=== PATIENT | male | born 1940 | race Caucasian/White ===

== ENCOUNTER 2016-12-03 10:53 | Day surgery (SDC) | payer OTHER ==
[2016-11-24 08:50] VITALS: BMI 32.0
--- NOTE | 2016-11-24 09:36 | PAT Medication Instructions ---
Service Date Nov 24, 2016. Current Home Medication List Fish Oil ([place]-3), 1 CAP PO QPM Ibuprofen (Motrin), 600 MG PO QID PRN for RN Lisinopril (Prinivil), 20 MG PO QAM Mometasone Furoate (Elocon), 1 APPLN TOP BID PRN for PRN Terazosin (Hytrin), 5 MG PO QAM [Otc For Muscles], 1 TAB PO QPM [Vitamin C], 1 TAB PO QPM [Vitamin D], 1 TAB PO QPM [Vitamin E], 1 TAB PO QPM Medication Instructions For Your Scheduled Surgery - Hold the following medications starting today 11/24/16: Vitamin E 1 TAB PO QPM Fish Oil ([place]-3), 1 CAP PO QPM OTC For Muscles 1 TAB PO QPM - Hold the following medications 24 hours prior to surgery: Mometasone Furoate (Elocon), 1 APPLN TOP BID PRN for PRN - Hold the following medications the morning of surgery: Lisinopril (Prinivil), 20 MG PO QAM Ibuprofen (Motrin), 600 MG PO QID PRN for RN (can continue per surgeon) - Take the following medications the morning of surgery with a sip of water: Terazosin (Hytrin), 5 MG PO QAM - Take the following medications as scheduled the night before surgery: Vitamin C 1 TAB PO QPM Vitamin D 1 TAB PO QPM If you have any questions please call us at [phone] or [phone] ( [place]) or [phone]
--- NOTE | 2016-11-24 10:00 | DIAGNOSTIC IMAGING REPORT ---
CHEST 2 VIEWS ROUTINE CLINICAL HISTORY: Preoperative evaluation. COMPARISON STUDY: No previous studies for comparison. FINDINGS: Lung volumes are normal. There is no pneumothorax or pleural effusion. Mild opacity within the left lower lung likely reflects atelectasis or epicardial fat pad. There is no evidence of pulmonary edema. There is borderline cardiomegaly. Mediastinal contours are unremarkable. IMPRESSION: 1. No acute cardiopulmonary findings. 2. Borderline cardiomegaly. 3. Mild left basilar opacity which favors atelectasis or prominent epicardial fat pad. Electronically signed by: Cristofer Adame M.D. 11/24/2016 9:59 AM
[2016-11-24 10:07] LABS: BASO ABS # 0.08 K/uL (0-0.2); COMPLETE YES; EOS % 3.7 %; HEMATOCRIT 34.1 % (42-52); IG% 0.2 %; LYMPH ABS # 0.77 K/uL (1.2-3.4); MEAN CORPUSCULAR HEMOGLOBIN 31.7 pg (25-34); MEAN CORPUSCULAR HGB CONC 35.2 g/dl (32-36); MEAN PLATELET VOLUME 9.3 fL (7.4-10.4); MONO % 5.9 %; NEUT % 69.2 %; PLATELET COUNT 219 K/uL (130-400); RED BLOOD COUNT 3.79 M/uL (4.7-6.1); WHITE BLOOD COUNT 4.06 K/uL (4.8-10.8)
[2016-11-24 10:25] LABS: BUN/CREATININE RATIO 14.1 (10-20); CALCIUM 9.4 mg/dl (8.5-10.1); CREATININE 1.1 mg/dl (0.60-1.40); POTASSIUM 4.6 mmol/L (3.5-5.1)
[~2016-12-03] VITALS: Ht 180.3 cm; Wt 106.8 kg
[~2016-12-03 10:53] MED LIST: IBUP-1450 PO; LACTATED RINGER'S 1000ML 1,000 ML IV SCH; LISI20TA3 PO; MOME0.1O TOP; OMEG10007 PO; TERA5CAP PO; VITAMIN C PO; VITAMIN D PO; VITAMIN E PO; [UNRECOGNIZED DRUG - REMARK] PO
[2016-12-03 11:08] VITALS: BP 159/102; PULSE 69; TEMP 36.6; O2SAT 98; Ht 180.3 cm; Wt 106.8 kg
[2016-12-03] MEDS ORDERED: ONDANSETRON INJ 2 MG/ML 2 ML VIAL ONE (12:28)
[2016-12-03] MEDS ORDERED: PROPOFOL IV EMULSION 10 MG/ML 20 ML VIAL IV ONE (12:28)
[2016-12-03] MEDS ORDERED: DEXAMETHASONE SOD INJ 4 MG/ML VIAL ONE (12:28)
[2016-12-03] MEDS ORDERED: LIDOCAINE HCL 2% 2 ML VIAL (20MG/ML) ONE (12:28)
[2016-12-03] MEDS ORDERED: FENTANYL CITRATE INJ 50 MCG/1 ML 2 ML VIAL ONE ×2 (12:29→13:36)
[2016-12-03] MEDS ORDERED: MIDAZOLAM HCL 1 MG/ML 2ML VIAL ONE (12:29)
--- NOTE | 2016-12-03 13:00 | History & Physical Bridge Note ---
H&P Re-Evaluation Bridge Note: I have examined the patient, reviewed the History & Physical and in the interval since the performance of the History & Physical I have noted the following changes of clinical significance: No changes noted pt marked, no one at bedside
[2016-12-03] MEDS ORDERED: OXYC-57 PO (13:05)
--- NOTE | 2016-12-03 13:05 | Discharge Instructions ---
Discharge Instructions Visit Reason for Visit: Left Scrotal Hernia Discharge Discharge Diagnosis / Problem: Repair of hernia Discharge Goals Goal(s): Decrease discomfort Activity Recommendations Activity Limitations: per Instructions/Follow-up section Lifting Limitations: no more than 10 pounds Shower/Bathe: tomorrow Driving or Machine Use: resume 3 days after discharge Anesthesia . Post Anesthesia Instructions: If you have had General Anesthesia or IV Sedation: * Do not drive today. * Resume driving when surgeon permits. * Do not make important decisions or sign legal documents today. * Call surgeon for: 1. Temperature elevations greater than 101 degrees F. 2. Uncontrollable pain. 3. Excessive bleeding. 4. Persistent nausea and vomiting. 5. Medication intolerance (nausea, vomiting or rash). * For nausea and vomiting use only clear liquids such as: tea, soda, bouillon until nausea subsides, then gradually increase diet as tolerated. * If you have any concerns or questions, call your surgeon's office. If physician is unavailable and it is an emergency, call 911 or go to the nearest emergency room. . Instructions / Follow-Up Instructions / Follow-Up Dr. Washington in 1 week, call [phone] if you do not already have an appt Ice incision off and on 20 minutes each until bedtime Diet Recommendations Recommended Home Diet: no limitations Pending Studies Studies pending at discharge: no Medical Emergencies . Who to Call and When: Medical Emergencies: If at any time you feel your situation is an emergency, please call 911 immediately. . Non-Emergent Contact Non-Emergency issues call your: Surgeon Call Non-Emergent contact if: you have a fever, temperature is above 101.5, your pain is not controlled, wound has increased redness, wound has increased pain . . "Provider Documentation" section prepared by Angelo Frazier.
[2016-12-03] MEDS ORDERED: CEFAZOLIN SOD 1 GM VIAL ONE (13:27)
[2016-12-03] MEDS ORDERED: BACITRACIN 50000 UNIT VIAL IR ONE (14:03)
[2016-12-03] MEDS ORDERED: BUPIVACAINE 0.5 % 5 MG/1 ML MPF 30ML VIAL INJ ONE (14:22)
--- NOTE | 2016-12-03 14:25 | [facility] Post Operative Brief Note ---
Immediate Operative Summary Operative Date Dec 03, 2016. Pre-Operative Diagnosis Left Scrotal Hernia Post-Operative Diagnosis Left Scrotal Hernia Procedure(s) Performed Open Left Indirect Sliding Inguinal Scrotal Hernia Repair with Mesh Surgeon Dr. Washington Lime Spreader Surgeon(s) BRIANA Villarreal Estimated Blood Loss 5 ml Findings sigmoid in hernia sac sliding Specimens none per surgeon
[2016-12-03] MEDS ORDERED: LACTATED RINGER'S 1000ML 1,000 ML IV SCH (14:35)
[2016-12-03] MEDS ORDERED: NALOXONE HCL 0.4 MG/1 ML VIAL/CARP IV PRN (14:45)
[2016-12-03] MEDS ORDERED: LABETALOL HCL IV 5 MG/ML 20ML IV PRN (14:45)
[2016-12-03] MEDS ORDERED: MoRPHine SULFATE 2 MG/ML CARP IV PRN (14:45)
[2016-12-03] MEDS ORDERED: ATROPINE SULFATE 0.1 MG/ML 5ML SYR IV PRN (14:45)
[2016-12-03] MEDS ORDERED: EpHEDrine SULFATE INJ 50 MG/ML AMP IV PRN (14:45)
[2016-12-03] MEDS ORDERED: OXYCODONE/ACETAMINOPHEN 5-325 TAB PO PRN (14:45)
[2016-12-03] MEDS ORDERED: ONDANSETRON INJ 2 MG/ML 2 ML VIAL IV PRN ×2 (14:45)
[2016-12-03] MEDS ORDERED: FLUMAZENIL 0.1 MG/1 ML 10 ML VIAL IV PRN (14:45)
[2016-12-03] MEDS ORDERED: PROMETHAZINE HCL INJ 12.5 MG in SODIUM CHLORIDE 0.9% 50ML 50 ML IV PRN (14:45)
[2016-12-03] MEDS: HYDROmorphone INJ 1 MG/ML SYR IV PRN ×2 (15:03→15:08)
--- NOTE | 2016-12-03 15:22 | Anesthesiology Progress Note ---
Anesthesia Post Op Note Date & Time Dec 03, 2016 at 15:21 Vital Signs Pain Intensity: 1 Vital Signs Past 12 Hours Date Time Temp Pulse Resp B/P Pulse Ox O2 Delivery O2 Flow Rate FiO2 12/03/16 15:18 36.5 12/03/16 15:15 67 17 100 12/03/16 15:15 64 17 12/03/16 15:13 161/99 12/03/16 15:10 71 12 100 12/03/16 15:10 64 12 12/03/16 15:09 144/92 12/03/16 15:05 66 12 100 12/03/16 15:05 60 12 12/03/16 15:04 166/98 12/03/16 15:00 63 11 100 12/03/16 15:00 62 11 12/03/16 14:59 159/95 12/03/16 14:55 66 10 12/03/16 14:55 68 10 100 12/03/16 14:53 157/103 12/03/16 14:50 78 12 12/03/16 14:50 80 12 100 12/03/16 14:49 159/99 12/03/16 14:45 80 12 12/03/16 14:45 77 12 100 12/03/16 14:43 154/97 12/03/16 14:41 143/103 12/03/16 14:35 36.3 73 16 162/81 100 Nasal Cannula 3 12/03/16 11:08 36.6 69 18 159/102 98 Room Air Notes Mental Status: alert / awake / arousable, participated in evaluation Pt Amnestic to Procedure: Yes Nausea / Vomiting: adequately controlled Pain: adequately controlled Airway Patency, RR, SpO2: stable & adequate BP & HR: stable & adequate Hydration State: stable & adequate Anesthetic Complications: no major complications apparent
--- NOTE | 2016-12-03 15:25 | OPERATIVE REPORT ---
DATE OF OPERATION: 12/03/2016 SURGEON: Dr. Washington. CAN TENDER: BRIANA Pendleton. PREOPERATIVE DIAGNOSIS: Large left scrotal hernia. POSTOPERATIVE DIAGNOSIS: Left indirect sliding hernia. PROCEDURE: Open repair of left indirect sliding hernia. DESCRIPTION OF PROCEDURE: The patient was brought into the operating room theater. The left lower quadrant was prepped with Betadine scrubbing solution and properly draped. We made a transverse anesthesia after preemptive local analgesia 1% Xylocaine with epinephrine was used to infiltrate 2 fingerbreadths medial, anterior, and superior iliac crest. An external oblique incision was made to the external ring and deepened through subcutaneous tissues. Some vessels were ligated with 2-0 silk. The patient had about an inch and a half of subcutaneous fatty tissue until we got to the abdominal wall. Identifying the external oblique along the course of its fibers, we used more local anesthetic, incised and elevated with hemostats. We were able then to go to the external ring. Once we were about the external ring, we could see that the patient had a significant amount of fatty tissue down towards the scrotum. We were able to elevate that with a Shahid drain and then we maneuvered that and then freed it up from the cord structure that was strictly adherent and we identified that the patient had a significant amount of sigmoid down into the hernial sac going down to the scrotum. We basically returned everything without opening the sac into the indirect area using a sponge forceps. Once we had returned everything in the abdomen, we then closed the internal ring loosely with interrupted 3-0 silk sutures just to approximate the tissue as was indirect defect. Then I used a piece of Marlex mesh and brought up onto the field. We took a segment of it and made a linear cutter until a piece of it to place as a plug into the indirect area using a silk suture as a central portion and as a stay suture. At this point, the Marlex mesh was brought onto the field and sutured onto the symphysis pubis and conjoined tendon down to the shelving portion and reconstructed the internal ring. Prior to completely reconstructing the internal ring, we used a silk suture to take bites of the patch onto the plug and tying it together. The internal ring was enough to accommodate the tip of a hemostat. We made sure that the Marlex mesh was approximately 3-4 cm beyond the internal inguinal laterally. This was all placed underneath the external oblique. The external oblique was then closed along the cord ____ with 3-0 silk interrupted suture, reconstructing the external ring. The patient had a little excess tissue along the cord structures of fatty lipomatous tissue which we did not remove. The subcutaneous tissue with 2-0 Dexon and latoya for skin edges. Dressing was applied. The procedure was tolerated well by the patient. Estimated blood loss approximately 5 mL. The patient was taken to recovery room in good condition. I attest to the content of the Intraoperative Record and any orders documented therein. Any exceptio ns are noted below.
[2016-12-03 15:35] VITALS: BP 167/91; PULSE 72; TEMP 36.9; O2SAT 96
[2016-12-03 16:05] VITALS: BP 170/94; PULSE 73; O2SAT 96
[2016-12-03 16:35] VITALS: BP 170/94; PULSE 73; O2SAT 96
[2017-07-29] MEDS ORDERED: VITAMIN B12 PO (07:35)
[2017-07-29] MEDS ORDERED: VITAMIN E PO (07:35)
[2017-07-29] MEDS ORDERED: VITAMIN C PO (07:35)
[2017-07-29] MEDS ORDERED: VITAMIN B6 PO (07:35)
[2017-07-29] MEDS ORDERED: VITAMIN D PO (07:35)
== END 2016-12-03 16:45 | disposition home or self-care (01) ==
LOC: C.ACU 10:53
PROVIDERS: ATTEND Surgery
DX: K40.90 Unilateral inguinal hernia, without obstruction or gangrene, not specified as recurrent (principal); L30.9 Dermatitis, unspecified; D48.5 Neoplasm of uncertain behavior of skin; Z86.008 Personal history of in-situ neoplasm of other site

== ENCOUNTER → 2017-03-16 | Outpatient (CLI) | payer OTHER ==
[~2017-03-16] MED LIST changes: -LACTATED RINGER'S 1000ML 1,000 ML IV SCH; +OXYC-57 PO; +VITAMIN B12 PO; +VITAMIN B6 PO
--- NOTE | 2017-03-16 14:41 | DIAGNOSTIC IMAGING REPORT ---
LUMBAR SPINE 5 VIEWS HISTORY: Pain RADICULOPATHY, LUMBOSACRAL REGION COMPARISON: None. FINDINGS: There is no fracture. There is slight scoliosis. Moderate degenerative disc changes throughout. Moderate reactive osteophytic changes throughout. IMPRESSION: Moderate degenerative change. Mild scoliosis. No acute process. Electronically signed by: Karthik Tran M.D. 03/16/2017 2:39 PM Dictated Date/Time: 03/16/2017 2:38 PM
--- NOTE | 2017-03-16 14:42 | DIAGNOSTIC IMAGING REPORT ---
PELVIS/UNILATERAL HIP 2-3VIEWS CLINICAL HISTORY: RADICULOPATHY pain. Neuropathy. COMPARISON: None. DISCUSSION: The bones and joint spaces appear intact. There is no evidence of fracture, dislocation or bony disease. There is no evidence for soft tissue swelling. IMPRESSION: Negative study. Electronically signed by: Karthik Tran M.D. 03/16/2017 2:40 PM Dictated Date/Time: 03/16/2017 2:39 PM
== END | disposition home or self-care (01) ==
LOC: C.RAD 13:59
PROVIDERS: ATTEND Family Medicine
DX: M54.17 Radiculopathy, lumbosacral region (principal)

== ENCOUNTER → 2017-08-11 | Day surgery (SDC) | payer MEDICARE, OTHER ==
[2017-07-29 07:35] VITALS: Ht 180.3 cm; Wt 109.1 kg
[~2017-08-11] VITALS: Ht 180.3 cm; Wt 109.1 kg
[~2017-08-11] MED LIST changes: +500ML BSS 0.3ML EPI 1:1000PF IRRIG ONE; +ACETAMINOPHEN 325 MG TAB PO PRN; +AMVISC PLUS 0.8ML SYRINGE INT OCU ONE; +ATROPINE SULFATE 0.1 MG/ML 5ML SYR IV PRN; +BSS FLUSH ONE; +ENDOCOAT 0.85ML SYRINGE INT OCU ONE; +EpHEDrine SULFATE INJ 50 MG/ML AMP IV PRN; +EpINEphrine INJ 1MG/ML AMP 1 MG/ML AMP ONE; +FENTANYL CITRATE INJ 50 MCG/1 ML 2 ML VIAL IV PRN; +LACTATED RINGER'S 1000ML 500 ML IV SCH; +LIDOCAINE 4% OP SOLN DROP CHARGE ONE; +LIDOCAINE 4% OP SOLN DROP CHARGE OPL SCH; +LIDOCAINE HCL 1% MPF 2 ML VIAL ONE; +MIDAZOLAM HCL 1 MG/ML 2ML VIAL ONE; +MIX: 4ML BSS 1ML EPI 1:1000 PF TOP ONE; -MOME0.1O TOP; +MOXIFLOXACIN OPH SOLN PER DROP CHARGE ONE; +ONDANSETRON INJ 2 MG/ML 2 ML VIAL IV PRN; -OXYC-57 PO; +POVIDONE-IODINE OP SOLN 30 ML BTL ONE; +PROPARACAINE 0.5% OP SOLN PER DROP CHARGE OPL SCH; +TOBRAMYCIN/DEXAMETHASONE OPH OINT PER APPLN CHARGE ONE; -[UNRECOGNIZED DRUG - REMARK] PO
--- NOTE | 2017-08-11 09:47 | History & Physical Bridge - [place] ---
H&P Re-Evaluation Bridge Note: I have examined the patient, reviewed the History & Physical and in the interval since the performance of the History & Physical I have noted the following changes of clinical significance: No changes noted
[2017-08-11] MEDS: PHENYLEPHRINE HCL 2.5% OP SOLN PER DROP CHARGE OPL SCH ×3 (09:53→10:06)
[2017-08-11] MEDS: TROPICAMIDE 1% OP SOLN PER DROP CHARGE OPL SCH ×3 (09:54→10:07)
[2017-08-11] MEDS: CYCLOPENTOLATE HCL 1% OP SOLN PER DROP CHARGE OPL SCH ×3 (10:00→10:07)
[2017-08-11] MEDS: MOXIFLOXACIN OPH SOLN PER DROP CHARGE OPL SCH ×3 (10:01→10:08)
--- NOTE | 2017-08-11 10:57 | [facility] Post Operative Brief Note ---
Immediate Operative Summary Operative Date Aug 11, 2017. Pre-Operative Diagnosis Left eye cataract Post-Operative Diagnosis Same as preop Procedure(s) Performed Left Cataract Phacoemulsification With Intraocular Lens Implant Surgeon Dr. Chung [employer] Assistant Surgeon(s) None Estimated Blood Loss 0 mL Findings left cataract Specimens None Complication(s) None Disposition
[2017-08-11 10:58] VITALS: TEMP 36.6
--- NOTE | 2017-08-11 10:58 | [facility] Operative Report ---
Operative Report Date of Service Aug 11, 2017. Operative Report Phaco with monofocal IOL DATE OF OPERATION: 08/11/17 PREOPERATIVE DIAGNOSIS: Senile nuclear cataract, left eye POSTOPERATIVE DIAGNOSIS: Senile nuclear cataract, left eye PROCEDURE PERFORMED: Phacoemulsification with intraocular lens implantation, left eye SURGEON: Dr. Morgan Chung ANESTHESIA: Topical with 1% intracameral lidocaine and monitored anesthesia care COMPLICATIONS: None DESCRIPTION OF PROCEDURE: After positively identifying the patient both verbally and by wristband in the preoperative area, the left eye was marked as the operative eye. The patient was then brought back to the operating room by the anesthesia and nursing staff where they were given a drop of Lidocaine and betadine into the operative eye. They were then sterilely prepped and draped in the standard fashion typical for ophthalmic surgery. Steri-strips were placed along the upper eyelids to keep the lashes back, and a lid speculum was placed into the operative eye. At this point, a documented time out was performed with members of the ophthalmology, nursing, and anesthesia staffs all agreeing upon the correct patient, correct location for surgery, correct procedure, and correct type and power of intraocular lens to be implanted. The microscope was then swung into position. First, a paracentesis wound was made using a sideport blade. Then, in sequence, 1% preservative-free lidocaine followed by Endocoat viscoelastic was injected into the anterior chamber. Next , the main incision was made with a keratome blade in triplanar fashion. A sharp cystotome was introduced into the eye and used to create a tear in the anterior capsule, which was directed into a continuous curvilinear capsulorrhexis using Utrata forceps. Hydrodissection was then performed with BSS on a flat-tip cannula. Next, the phacoemulsification handpiece was introduced into the eye and used to remove the nucleus in a [id number] fashion. This was done without complication and then the irrigation-aspiration handpiece was introduced into the eye and used to remove all remaining cortical and epinuclear material. Amvisc was then injected into the anterior chamber as well as into the capsular bag and using the lens injector system, an MX60 19.5 D lens, serial number [id number], and expiration date 01/2020 was injected into the capsular bag and rotated into the correct position. Next, the irrigation- aspiration handpiece was used to remove all remaining Amvisc. BSS was used to hydrate the main wound, and then BSS was injected into the paracentesis site to reach physiologic pressure and then the main wound was checked and found to be watertight. The patient was given drops of Vigamox and Tobradex ointment into the operative eye, and then the surrounding area was cleaned and dried. A clear plastic shield was placed over the eye and the patient was then sat up and taken from the operating room by the anesthesia staff having tolerated the procedure well and suffering no complications. DISPOSITION: The patient was returned to the recovery room in stable condition. I attest to the content of the Intraoperative Record and any orders documented therein. Any exceptions are noted below.
--- NOTE | 2017-08-11 10:59 | Discharge Instructions-SurgCtr ---
Discharge Instructions Date of Service Aug 11, 2017. Visit Reason for Visit: Cataract Left Eye Discharge Discharge Diagnosis / Problem: left cataract Discharge Goals Goal(s): Decrease discomfort, Improve function Activity Recommendations Activity Limitations: as noted below Anesthesia . Post Anesthesia Instructions: If you have had General Anesthesia or IV Sedation: * Do not drive today. * Resume driving when surgeon permits. * Do not make important decisions or sign legal documents today. * Call surgeon for: 1. Temperature elevations greater than 101 degrees F. 2. Uncontrollable pain. 3. Excessive bleeding. 4. Persistent nausea and vomiting. 5. Medication intolerance (nausea, vomiting or rash). * For nausea and vomiting use only clear liquids such as: tea, soda, bouillon until nausea subsides, then gradually increase diet as tolerated. * If you have any concerns or questions, call your surgeon's office. If physician is unavailable and it is an emergency, call 911 or go to the nearest emergency room. . Instructions / Follow-Up Instructions / Follow-Up ACTIVITY RECOMMENDATIONS: * Light activities. * You may walk outside, read, watch television. * You may notice redness on the white part of the eye and some blurry vision - this is normal. MEDICATIONS: Resume previous medications unless instructed otherwise by your surgeon. Start all eye drops at 1 pm today: * Eye drops (today): Prednisone - one drop in operative eye every 2 hours while awake Ofloxacin - one drop in operative eye every 2 hours while awake Bromfenac - one drop in operative eye daily SPECIAL CARE INSTRUCTIONS: * Tape plastic shield over eye to sleep at night. Call your doctor at with any concerns or problems. FOLLOW UP VISIT: Follow-up with Dr Chung at [place] office as scheduled. Diet Recommendations Home Diet: no limitations Procedures Procedures Performed: Left Cataract Phacoemulsification With Intraocular Lens Implant Pending Studies Studies pending at discharge: no Medical Emergencies . Who to Call and When: Medical Emergencies: If at any time you feel your situation is an emergency, please call 911 immediately. . Non-Emergent Contact Non-Emergency issues call your: Surgeon . . "Provider Documentation" section prepared by Morgan Chung. .
[2017-08-11 11:17] VITALS: BP 154/91; PULSE 57; O2SAT 99
--- NOTE | 2017-08-11 11:23 | Anesthesia Progress Nt - [facility] ---
Anesthesia Post Op Note Date & Time Aug 11, 2017 at 11:22 Vital Signs Pain Intensity: 0 Vital Signs Past 12 Hours Date Time Temp Pulse Resp B/P (MAP) Pulse Ox O2 Delivery O2 Flow Rate FiO2 08/11/17 11:17 57 16 154/91 (112) 99 Room Air 08/11/17 10:58 36.6 63 16 157/92 (113) 96 Room Air 08/11/17 09:45 36.3 70 70 177/106 (129) 99 Room Air Notes Mental Status: alert / awake / arousable, participated in evaluation Pt Amnestic to Procedure: Yes Nausea / Vomiting: adequately controlled Pain: adequately controlled Airway Patency, RR, SpO2: stable & adequate BP & HR: stable & adequate Hydration State: stable & adequate Anesthetic Complications: no major complications apparent
== END | disposition home or self-care (01) ==
LOC: X.SURG 09:35
PROVIDERS: ATTEND Ophthalmology
DX: H25.12 Age-related nuclear cataract, left eye (principal); I10 Essential (primary) hypertension

== ENCOUNTER → 2018-06-15 | Outpatient (CLI) | payer OTHER ==
[~2018-06-15] MED LIST changes: -500ML BSS 0.3ML EPI 1:1000PF IRRIG ONE; -ACETAMINOPHEN 325 MG TAB PO PRN; -AMVISC PLUS 0.8ML SYRINGE INT OCU ONE; -ATROPINE SULFATE 0.1 MG/ML 5ML SYR IV PRN; -BSS FLUSH ONE; -ENDOCOAT 0.85ML SYRINGE INT OCU ONE; -EpHEDrine SULFATE INJ 50 MG/ML AMP IV PRN; -EpINEphrine INJ 1MG/ML AMP 1 MG/ML AMP ONE; -FENTANYL CITRATE INJ 50 MCG/1 ML 2 ML VIAL IV PRN; -LACTATED RINGER'S 1000ML 500 ML IV SCH; -LIDOCAINE 4% OP SOLN DROP CHARGE ONE; -LIDOCAINE 4% OP SOLN DROP CHARGE OPL SCH; -LIDOCAINE HCL 1% MPF 2 ML VIAL ONE; -MIDAZOLAM HCL 1 MG/ML 2ML VIAL ONE; -MIX: 4ML BSS 1ML EPI 1:1000 PF TOP ONE; -MOXIFLOXACIN OPH SOLN PER DROP CHARGE ONE; -ONDANSETRON INJ 2 MG/ML 2 ML VIAL IV PRN; -POVIDONE-IODINE OP SOLN 30 ML BTL ONE; -PROPARACAINE 0.5% OP SOLN PER DROP CHARGE OPL SCH; -TOBRAMYCIN/DEXAMETHASONE OPH OINT PER APPLN CHARGE ONE
--- NOTE | 2018-06-15 12:58 | DIAGNOSTIC IMAGING REPORT ---
CAROTID ARTERY ULTRASOUND CLINICAL HISTORY: Transient ischemic attack. COMPARISON STUDY: None. TECHNIQUE: Real-time, grayscale, and color Doppler sonography of the carotid and vertebral arteries was performed. Images were viewed in the transverse and longitudinal planes. FINDINGS: There is mild atherosclerotic plaque. Velocity measurements are listed below. COMMON CAROTID PEAK SYSTOLIC VELOCITY (CM/S): RIGHT 57 LEFT 78 ICA PEAK SYSTOLIC VELOCITY (CM/S): RIGHT 83 LEFT 85 Systolic ratios between the internal to common carotid arteries were normal. Antegrade flow is seen in the vertebral arteries. The external carotid arteries are patent. Blood pressure in the right arm measured 167/91. Blood pressure in the left arm measured 168/85. IMPRESSION: 1. No evidence for hemodynamically significant stenosis. 2. Moderately elevated blood pressure, as above. Electronically signed by: Cristofer Adame M.D. 06/15/2018 12:57 PM Dictated Date/Time: 06/15/2018 12:54 PM
== END | disposition home or self-care (01) ==
LOC: C.ULTR 12:07
PROVIDERS: ATTEND Family Medicine
DX: G45.9 Transient cerebral ischemic attack, unspecified (principal)